=== PATIENT | male | born 1975 | race Caucasian/White ===

== ENCOUNTER 2022-01-19 08:57 | Emergency (ER) | payer BC, SELFPAY ==
--- NOTE | ~2022-01-19 | XR_ITS ---
EXAMINATION: XR HAND, LEFT CLINICAL INFORMATION: Trauma COMPARISON: None TECHNIQUE: 3 views of the left hand. FINDINGS: There is a compound fracture of the distal phalanx of the second finger. There is a comminuted displaced fracture of the distal tuft. There also appears to be a fracture of the base of the distal phalanx intra-articular with the DIP joint. There is evidence of trauma to the overlying soft tissues. No other fracture is seen. XR/XR hand LT min 3V IMPRESSION: Compound fracture of the distal phalanx of the second finger.
[2022-01-19 09:12] VITALS: BP 141/81; PULSE 69; RESP 16; TEMP 36.2; O2SAT 97; BMI 26.4
[2022-01-19] MEDS: Ibuprofen 600 MG TABLET PO (09:20)
[2022-01-19] MEDS: Lidocaine HCl 2 % MPF 5 ML VIAL SUBCUT (09:57)
[2022-01-19] MEDS: Amoxicillin/Potassium Clav 875 MG TABLET PO (09:58)
--- NOTE | 2022-01-19 11:25 | ED.WOUNDLAC ---
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 Related Data Previous Rx's Medication Instructions Recorded amoxicillin 875 mg-potassium 1 tab PO BID #14 tab 01/19/22 clavulanate 125 mg tablet ibuprofen 800 mg tablet 800 mg PO Q8H PRN #30 tab 01/19/22 oxycodone 5 mg tablet 5 mg PO Q4H PRN #5 tab 01/19/22 Allergies Allergy/AdvReac Type Severity Reaction Status Date / Time No Known Allergies Allergy Verified 01/19/22 09:20 Review of Systems Review of Systems: Yes all other systems are reviewed and are negative Constitutional: Constitutional: Reports no additional constitutional complaints, Denies body ache(s), Denies chills, Denies fever(s), Denies headache(s) and Denies weakness Eyes: Eyes: Reports no additional eye complaints and Denies change in vision ENT: Reports system reviewed and no additional complaints, except as documented, Denies dizziness, Denies headache(s), Denies nasal congestion, Denies nasal discharge and Denies neck pain Cardiovascular: Cardiovascular: Reports no additional cardiovascular complaints, Denies chest pain, Denies leg edema and Denies dyspnea Respiratory: Respiratory: Reports no additional respiratory complaints, Denies cough and Denies dyspnea Gastrointestinal: Gastrointestinal: Reports no additional gastrointestinal complaints, Denies abdominal pain, Denies diarrhea, Denies nausea and Denies vomiting Genitourinary: Genitourinary: Denies urinary incontinence Musculoskeletal: Musculoskeletal: Reports no additional musculoskeletal complaints, Denies back pain, Reports arthralgias, Denies joint swelling, Denies neck pain, Denies numbness and Denies tingling Comments: +laceration Integumentary/Breasts: Skin/Breast: Reports system reviewed and no additional complaints, except as docu and Denies rash Neurologic: Reports system reviewed and no additional complaints, except as documented, Denies dizziness, Denies headache(s), Denies numbness, Denies tingling and Denies weakness PMFSH Past Medical History Attestation statement: The following information was validated with the patient. Source: old records reviewed and nursing notes reviewed Social History Social History Advance Directives: No Advance Directives Information Provided: No Physical Exam Vital Signs: Vital Signs: Last Vital Signs Temp 97.1 F 01/19/22 09:12 Pulse 69 01/19/22 09:12 Resp 16 01/19/22 09:12 BP 141/81 H 01/19/22 09:12 Pulse Ox 97 01/19/22 09:12 BMI result Body Mass Index 26.4 Const: Other: +in pain General: alert Orientation/consciousness: patient oriented x3 Limitations: no limitations HEENT: Head: Yes normal to inspection Eyes: General: appearance normal, both eyes and all related structures Neck: Neck: Yes normal visual inspection Chest: Chest palpation & inspection: normal inspection of the chest Resp: Effort & Inspection: normal respiratory effort Cardio: Peripheral pulses: Peripheral pulses 2+ throughout Skin: General skin exam: no rashes or lesions noted Neuro: General: patient oriented x3 and moves all extremities Cognition (Neuro): normal cognition Gait exam (Neuro): Normal gait present Extrem: Other: There is sensation to the distal finger tip. The patient is able to flex and extend the digit. He does have his distal phalanx in a slightly flexed position and is unable to extend the distal aspect. There is a large laceration. The medial aspect of the laceration that contains the nail is very loose attached to the digit. The more lateral aspect is intact and attached to the digit. The nail is loose but the matrix is intact. There is active bleeding. General: Yes normal to inspection Course Course Course Narrative: 46 yo male here with laceration to left index finger from a table saw which occurred just [employer]. Will obtain x-rays. Tetanus it UTD. Will perform digital block, perform laceration repair, give oral antibiotics and discuss with orthopedics. Reevaluation(s) Reevaluation #1: X-rays show -Compound fracture of the distal phalanx of the second finger. Digital block was performed with +effect. The finger was irrigated extensively with 2L NS w/ betadine. See procedure note. discussed the case with orthopedics d/t the extensive laceration w/ mallet finger w/ distal phlanx fracture. I spoke to Rakel SCHRADER. They will reach out to the patient today and set up an appointment for Saturday to follow-up with hand surgery. Reviewed worrisome signs and symptoms with the patient and when to return to the emergency department. Comfortable discharge home. Time: 11:30 MDM - Wound/Laceration MDM Narrative Medical decision making narrative: fracture Differential Diagnosis Differential diagnosis: Likely laceration Medical Records Attestation: I reviewed the patient's medical records. Lab Data Attestation: I reviewed the patient's lab results. Imaging Data hand x-ray: Attestation: I personally reviewed and interpreted this imaging study as follows: Radiologist's impression: [address] [address] XRay Report Signed Patient: Daljit Rolle MR#: [id number] : 1975 Acct:[id number] Age/Sex: 46 / M ADM Date: 01/19/22 Loc: HO.ED Attending Dr: Ordering Physician: Zoe Dougherty NP Date of Service: 01/19/22 Procedure(s): XR hand LT min 3V Accession Number(s): [id number] cc: Zoe Dougherty NP~ EXAMINATION: XR HAND, LEFT CLINICAL INFORMATION: Trauma? COMPARISON: None? TECHNIQUE: 3 views of the left hand. FINDINGS: There is a compound fracture of the distal phalanx of the second finger. There is a comminuted displaced fracture of the distal tuft. There also appears to be a fracture of the base of the distal phalanx intra-articular with the DIP joint. There is evidence of trauma to the overlying soft tissues. No other fracture is seen. XR/XR hand LT min 3V IMPRESSION: Compound fracture of the distal phalanx of the second finger. Procedures Laceration Laceration 1: Site: hand Side (If applicable): left (index finger-2cm over volar aspect extending through lateral nail bed over dorsal finger additional 5cm with skin avulsion over the dorsal aspect. The lateral aspect of the nail is missing ) Size (cm): 7 Description: linear, flap and irregular Depth: simple, single layer Local Anesthetic: lidocaine 2% (digital block) Amount of anesthesia used (mL): 3 Pre-repair: wound explored and irrigated extensively Skin layer closed with: vicryl Size (cm): 5-0 Number of sutures: 16 Technique: simple, interrupted Nerve Block Nerve Block 1: Local Anesthetic: lidocaine 2% Amount of anesthesia used (mL): 3 Side: left Nerve Blocks: digital Procedure Successful: Yes Patient Tolerated Procedure: well Complications: none Discharge Plan Discharge Clinical Impression: Laceration, Fracture of distal phalanx of finger of left hand, Mallet deformity of left index finger Patient Disposition: Home, Self-Care Instructions: Finger Fracture (ED), Finger Laceration (ED) Additional Instructions: Orthopedic should call you today to set up an appointment to see them on Saturday You have 16 sutures Wash the area with soap and water daily Prescriptions: New amoxicillin-pot clavulanate 875-125 mg tablet 1 tab PO BID Qty: 14 0RF ibuprofen 800 mg tablet 800 mg PO Q8H PRN (Reason: pain) Qty: 30 0RF oxycodone 5 mg tablet 5 mg PO Q4H PRN (Reason: pain) Qty: 5 0RF Referrals: Marj Chambers MD [Physician] - 5 days Interventions: ED Discharge Assessment Last Done: 01/19/22 11:23 Discharge Date/Time: 01/19/22 11:23
== END 2022-01-19 11:23 | disposition home or self-care (01) ==
PROVIDERS: Emergency Provider Emergency Medicine; PCP Internal Medicine
DX: S62.631B Displaced fracture of distal phalanx of left index finger, initial encounter for open fracture (principal); W31.2XXA Contact with powered woodworking and forming machines, initial encounter; M20.012 Mallet finger of left finger(s); Y93.9 Activity, unspecified; Y92.009 Unspecified place in unspecified non-institutional (private) residence as the place of occurrence of the external cause; Y99.9 Unspecified external cause status
CPT/HCPCS: 12042; 73130; 99283; 99284